=== PATIENT | female | born 1990 | race Native Hawaiian/Other Pacific Islander ===

== ENCOUNTER 2022-11-07 10:11 | Emergency (ER) | payer OTHER, SELFPAY ==
--- NOTE | ~2022-11-07 | XR_ITS ---
EXAMINATION: XR FOOT, RIGHT CLINICAL INFORMATION: Right foot pain status post fall and twisting injury yesterday. COMPARISON: None available. TECHNIQUE: AP, lateral, and oblique views of the right foot. FINDINGS: There is an acute, nondisplaced oblique longitudinal fracture involving the proximal metaphysis of the first metatarsal extending approximately to the tarsometatarsal joint space. The remainder of the digits are intact. The tarsal bones are normally aligned. There is mild soft tissue swelling. XR/XR foot RT 2V IMPRESSION: Acute, nondisplaced intra-articular fracture of the proximal first metatarsal with mild soft tissue swelling.
[2022-11-07 10:40] VITALS: BP 158/102; PULSE 74; RESP 14; TEMP 36.3; O2SAT 100; BMI 23.6
--- NOTE | 2022-11-07 11:18 | ED_ITS ---
HPI - Extremity Injury (Lower) General Chief Complaint: Extremity Injury, Lower Stated Complaint: r foot inj Time Seen by Provider: 11/07/22 11:17 Source: patient, RN notes reviewed and old records reviewed Mode of arrival: ambulatory History of Present Illness HPI Narrative: 32-year-old female with no significant past medical history presenting to the ED complaining of right foot pain and swelling s/p falling off high chair 2 days ago. Reports fell off twisting foot. Has been minimally ambulatory with pain. Denies numbness, tingling, weakness, ankle/knee pain, head trauma or LOC Onset (ago): day(s) Related Data Allergies Allergy/AdvReac Type Severity Reaction Status Date / Time No Known Allergies Allergy Verified 11/07/22 10:39 Review of Systems Review of Systems: Constitutional: No Fever, No Chills ENT/Mouth: No Ear Pain, No Nasal Congestion, No Sinus Pain, No Hoarseness, No sore throat, No Rhinorrhea, No Swallowing Difficulty Cardiovascular: No Chest Pain, No SOB Respiratory: No Cough, No Sputum, No Wheezing Gastrointestinal: No Nausea, No Vomiting, No Diarrhea, No Constipation, No Abdominal pain Musculoskeletal: + joint pain, No Myalgias, + Joint Swelling Skin: No Skin Lesions, No rash Neuro: No Weakness, No Numbness, No Paresthesias Yes all other systems are reviewed and are negative Constitutional: Constitutional: Reports as per [facility] Past Medical History Attestation statement: The following information was validated with the patient. Source: old records reviewed Social History Social History Smoked in Last 30 Days: Yes Use of substances other than those prescribed or required for medical reasons: Yes Substance Use Type: Marijuana Advance Directives: No Physical Exam Vital Signs: Vital Signs: Last Vital Signs Temp 97.3 F 11/07/22 10:40 Pulse 74 11/07/22 10:40 Resp 14 11/07/22 10:40 BP 158/102 H 11/07/22 10:40 Pulse Ox 100 11/07/22 10:40 O2 Del Method Room Air 11/07/22 10:40 BMI result Body Mass Index 23.6 Const: General: cooperative, healthy appearing and no acute distress Orientation/consciousness: patient oriented x3 Limitations: no limitations HEENT: Head: Yes normal to inspection and Yes atraumatic Ears: hearing grossly normal bilaterally General nose exam: Normal external nose present Face and sinus: Yes normal facial exam Eyes: General: appearance normal, both eyes and all related structures EOM: EOMs intact bilaterally Neck: Neck: Yes normal visual inspection and Yes no meningeal signs Resp: Effort & Inspection: normal respiratory effort and no respiratory distress Cardio: Rate: regular rate Peripheral pulses: dorsalis pedis present Skin: Rashes: no rashes Wounds: no wounds Neuro: General: patient oriented x3, tone normal and no meningeal signs Gait exam (Neuro): Normal gait present Extrem: Other: Right foot volar aspect with diffuse swelling and healing ecchymosis. Tender to palpation. Neurovascularly intact. Right ankle/tib-fib and knee nontender. Mildly limited ROM to ankle and toes secondary to discomfort. Sensation intact to light touch Course Course Course Narrative: 1142--XR foot RT 2V IMPRESSION: Acute, nondisplaced intra-articular fracture of the proximal first metatarsal with mild soft tissue swelling. > will place patient in posterior short-leg and supplied with crutches to be n onweightbearing and follow up with Orthopedics Medications Administered Discontinued Medications Generic Name Dose Route Start Last Admin Trade Name Freq PRN Reason Stop Dose Admin Ibuprofen 800 mg 11/07/22 11:38 11/07/22 12:38 Ibuprofen 800 Mg Tablet PO 11/07/22 11:39 800 mg ONCE ONE Administration Medical Decision Making Medical Decision Making [facility] Narrative: 32-year-old female with no significant past medical history presenting to the ED complaining of right foot pain and swelling s/p falling off high chair 2 days ago. On exam hypertensive likely from pain/discomfort, NAD, nontoxic appearing, physical exam as noted above. Concern for fracture versus sprain. No evidence of cellulitis/infection Plan: X-rays Please refer to course for remaining clinical decision making, interpretation of labs/imaging results, and discussions with consultants and/or family members. Differential Diagnosis Differential Diagnoses: The differential diagnosis associated with the presentation includes As above Independent Interpretation I performed an independent interpretation of an: Plain X-Ray Radiology Impression Discussion of test interpretation with radiology: I have reviewed the radiologist's reading. Independent Historian Clinical information obtained from an independent historian. History obtained from or confirmed by: Friend External Record Review External record reviewed: Inpatient record, Office record, Outpatient record, Prior outpatient labs, Prior outpatient radiology, Primary care record and Outside ED record Tests considered The following testing was considered but not selected: As above Prescription Management I considered prescription management with: Pain Medication Procedures Orthopedic Splinting/Casting Injury #1: Lower Extremity Injury Location: foot Lower Extremity Immobilizer: posterior splint Other Orthopedic Equipment: crutches Discharge Plan Discharge Clinical Impression: Metatarsal fracture Qualifiers: Metatarsal bone: first Fracture type: closed Fracture alignment: nondisplaced Patient Disposition: Home, Self-Care Instructions: Crutch Instructions (ED), Foot Fracture in Adults (ED) Additional Instructions: You have a nondisplaced fracture of your 1st metatarsal Keep splint on, dry and clean DO NOT BEAR ANY WEIGHT ON HER RIGHT LEG, USE CRUTCHES Call orthopedic office for follow-up in 1 week Ice and elevate, take Tylenol and Motrin If does become increasingly swollen, numb, discolored or pain is unbearable remove splint and return to the ED [place]: [facility] [place] [facility] [place] Group] - 1 week Stand Alone Forms: Work/School Release Interventions: ED Discharge Assessment Last Done: 11/07/22 12:51 Discharge Date/Time: 11/07/22 12:52
[2022-11-07] MEDS: Ibuprofen 800 MG TABLET PO (12:38)
== END 2022-11-07 12:52 | disposition home or self-care (01) ==
PROVIDERS: Emergency Provider Emergency Medicine Emergency Medical Services
DX: S92.311A Displaced fracture of first metatarsal bone, right foot, initial encounter for closed fracture (principal); M79.671 Pain in right foot; W07.XXXA Fall from chair, initial encounter; Y93.9 Activity, unspecified; Y92.9 Unspecified place or not applicable; Y99.9 Unspecified external cause status; Z79.899 Other long term (current) drug therapy
CPT/HCPCS: 29515; 73620; 99283; 99284

== ENCOUNTER 2022-11-15 10:05 | Outpatient (AMB) | payer OTHER, SELFPAY ==
[2022-11-15 10:19] VITALS: BMI 23.6
--- NOTE | 2022-11-15 10:19 | A.OFFVIS_ITS ---
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 Patient reports she fell off a high chair and twisted her ankle on 11/05/22. Seen in ED where she was splinted. Currently states she has 6/10 in pain level. States she has numbness and tingling on and off. She is now able to move her toes. 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 The patient presented to the ED on 11/07/2022 status post falling off a high chair that occurred on 11/05/2022. X- rays of the right foot were obtained. She was placed in a splint and referred to orthopedics. The patient reports her pain is currently a 6/10 while in the office today. She confirms intermittent numbness and tingling. She states she is now able to move her toes. 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 Review of Systems Const All systems reviewed & are unremarkable except as noted in HPI and below Physical Exam Vital Signs: BMI result Body Mass Index 23.6 Const General: cooperative, healthy appearing, comfortable, no acute distress, well developed and alert Orientation/consciousness: patient oriented x3 HEENT Head: Yes normal to inspection, Yes normocephalic and Yes atraumatic Eyes General: appearance normal, both eyes and all related structures Resp Effort & Inspection: normal respiratory effort and able to speak in complete sentences Cardio Rate: regular rate Peripheral pulses: Peripheral pulses 2+ throughout GI Palpation (GI): Soft to palpation Skin Lesions: no lesions Rashes: no rashes Neuro General: patient oriented x3 Extrem Other: Right foot: Resolving ecchymosis on the plantar surface of the foot, as well as the base of the toes. Moderate edema. Tenderness to palpation at the fracture site. Patient is able to demonstrate dorsiflexion, plantar flexion, pronation and supination. Negative anterior drawer. Sensation intact. Pedal Pulse intact. Assessment & Plan Assessment & Plan (1) Fracture of first metatarsal bone of right foot: Comment: 1st metatarsal fracture with minimal displacement. Code(s): S92.311A - Displaced fracture of first metatarsal bone, right foot, initial encounter for closed fracture Plan Ms. Jerry is a 32-year-old female who presents in the office today, as a new patient, for an evaluation of right foot pain. The patient presented to the ED on 11/07/2022 status post falling off a high chair that occurred on 11/05/2022. X-rays of the right foot were obtained. She was placed in a splint and referred to orthopedics. The patient reports her pain is currently a 6/10 while in the office today. She confirms intermittent numbness and tingling. She states she is now able to move her toes. Dr. Driscoll was available to speak with me about the patient today and a collaborative treatment plan was made. She will be placed back in to a short leg boot, off the shelf, while in the office today. She will remain non-weight bearing. I explained to the patient that after she moves she will need to follow up with a new orthopedic provider in [place]. Follow up will be a few days before she moves to evaluate her weight bearing status, or sooner if needed. X-rays of the right foot which were obtained while in the office today and were reviewed by me, Sri Gann PA-C, revealed redemonstration of 1st metatarsal fracture with minimal displacement. X-rays of the right foot, obtained on 11/07/2022, revealed: Acute, nondisplaced intra-articular fracture of the proximal first metatarsal with mild soft tissue swelling. Orders: Orders XR foot RT min 3V Today M79.673 - Pain in unspecified foot Patient Instructions: Scribed for Sri Gann PA-C by Sarahi Noel neuropsychology medical consultant, on 11/15/2022 at 10:18 am, EST. Your attestation Coding Level of Care Code New Pt Level 4 (27176) Diagnoses Fracture of first metatarsal bone of right foot S92.311A
== END 2022-11-15 11:23 | disposition home or self-care (01) ==
PROVIDERS: Visit Provider Physician Assistant
DX: S92.311A Displaced fracture of first metatarsal bone, right foot, initial encounter for closed fracture (principal)
CPT/HCPCS: 99204

== ENCOUNTER 2022-11-15 10:37 | Outpatient (REF) | payer OTHER, SELFPAY ==
--- NOTE | ~2022-11-15 | XR_ITS ---
EXAMINATION: XR FOOT, RIGHT CLINICAL INFORMATION: Pain COMPARISON: 11/07/22 TECHNIQUE: 3 views of the right foot. FINDINGS: There is a mildly displaced fracture through the proximal lateral aspect of the first metatarsal with involvement of the articular surface. The fracture involves the lateral third of the articular surface with approximately 1 mm offset and distraction. No solid bridging callus. No convincing change in position. XR/XR foot RT min 3V IMPRESSION: Mildly displaced intra-articular fracture through the proximal lateral aspect of the first metatarsal.
== END 2022-11-15 10:38 | disposition home or self-care (01) ==
LOC: HO.HOSX 10:37
PROVIDERS: Visit Provider Physician Assistant
DX: S92.311A Displaced fracture of first metatarsal bone, right foot, initial encounter for closed fracture (principal)
CPT/HCPCS: 73630; 99202

== ENCOUNTER 2022-12-05 12:58 | Outpatient (REF) | payer OTHER, SELFPAY | END 2022-12-05 12:59 | disposition home or self-care (01) | LOC: HO.HOSX 12:58 | PROVIDERS: Visit Provider Physician Assistant | DX: Z13.89 Encounter for screening for other disorder (principal) ==

== ENCOUNTER 2022-12-06 13:36 | Outpatient (AMB) | payer OTHER, SELFPAY ==
--- NOTE | 2022-12-06 13:46 | MHC.OFFVIS ---
Intake Vital Signs 12/06/22 13:49 Height 5 ft 1 in Weight 125 lb BMI 23.6 Intake Visit Reasons: OV-Rt Foot Metatarsal Fx Intake Note: Shona 32 yr old female presents today for her follow up visit for her Fracture of first metatarsal bone of right foot from DOI 11/05/22 States she has a little pain still when walking with out her boot. Xrays updated in office. Allergies No Known Allergies Allergy (Verified 12/06/22 13:49) HPI OV-Rt Foot Metatarsal Fx HPI Details 32-year-old female who presents in the office today for a follow up of right 1st metatarsal fracture, which occirred on 11/05/2022 status post falling off a high chair. The patient reports mild pain when ambulating outside the boot. 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 Moderate edema. Tenderness to palpation at the fracture site. Patient is able to demonstrate dorsiflexion, plantar flexion, pronation and supination. Negative anterior drawer. Sensation intact. Pedal Pulse intact. Assessment & Plan Assessment & Plan (1) Fracture of first metatarsal bone of right foot: Comment: 1st metatarsal fracture with minimal displacement. Code(s): S92.311A - Displaced fracture of first metatarsal bone, right foot, initial encounter for closed fracture Plan Ms. Jerry is a 32-year-old female who presents in the office today for a follow up of right 1st metatarsal fracture, which occirred on 11/05/2022 status post falling off a high chair. The patient reports mild pain when ambulating outside the boot. The patient was switched to a post operative shoe, off the shelf, while in the office today. Once she is comfortable she will wean out of the shoe into a supportive sneaker. She may weight bear as tolerated. Follow up will be in 4 weeks, or sooner if needed. X-rays of the right foot which were obtained while in the office today and were reviewed by me, Sri Gann PA-C, revealed routine healing of a right 1st metatarsal fracture. Orders: Orders XR foot RT min 3V Today M79.673 - Pain in unspecified foot Patient Instructions: Scribed for Sri Gann PA-C by Sarahi Noel medical office scheduler, on 12/06/2022 at 1:40 pm, EST. Coding Level of Care Code Global (80863) Diagnoses Fracture of first metatarsal bone of right foot S92.311A
[2022-12-06 13:49] VITALS: BMI 23.6
== END 2022-12-06 14:22 | disposition home or self-care (01) ==
PROVIDERS: Visit Provider Physician Assistant
DX: S92.311A Displaced fracture of first metatarsal bone, right foot, initial encounter for closed fracture (principal)
CPT/HCPCS: 99213

== ENCOUNTER 2022-12-06 13:36 | Outpatient (REF) | payer OTHER, SELFPAY ==
--- NOTE | ~2022-12-06 | XR_ITS ---
EXAMINATION: XR FOOT, RIGHT CLINICAL INFORMATION: Pain COMPARISON: , 11/07/22 TECHNIQUE: 3 views of the right foot. FINDINGS: Redemonstration of a mildly displaced fracture through the proximal lateral aspect of the first metatarsal with involvement of the articular surface. The fracture involves the lateral third of the articular surface with approximately 1 mm offset and distraction. No definitive bridging callus. Similar in position. XR/XR foot RT min 3V IMPRESSION: Mildly displaced intra-articular fracture through the proximal lateral aspect of the first metatarsal.
== END 2022-12-06 13:37 | disposition home or self-care (01) ==
LOC: HO.HOSX 13:36
PROVIDERS: Visit Provider Physician Assistant
DX: S92.311D Displaced fracture of first metatarsal bone, right foot, subsequent encounter for fracture with routine healing (principal)
CPT/HCPCS: 73630; 99212

== ENCOUNTER 2023-01-06 15:20 | Outpatient (REF) | payer OTHER, SELFPAY | END 2023-01-06 15:21 | disposition home or self-care (01) | LOC: HO.HOSX 15:20 | PROVIDERS: Visit Provider Physician Assistant | DX: Z13.89 Encounter for screening for other disorder (principal) ==